=== PATIENT | male | born 1955 | race Hispanic/Latino ===

== ENCOUNTER → 2018-02-08 | Outpatient (CLI) | payer BC, OTHER | END | disposition home or self-care (01) | LOC: SHCH 08:12 | PROVIDERS: ATTEND Internal Medicine Cardiovascular Disease | DX: I34.0 Nonrheumatic mitral (valve) insufficiency (principal); I35.8 Other nonrheumatic aortic valve disorders; I25.10 Atherosclerotic heart disease of native coronary artery without angina pectoris | CPT/HCPCS: 93306 ==

== ENCOUNTER → 2018-02-14 | Outpatient (CLI) | payer BC, OTHER ==
[~2018-02-14] MED LIST: REGADENOSON 0.4 MG/5 ML PF SYG IVP SCH
== END | disposition home or self-care (01) ==
LOC: SHCH 08:14
PROVIDERS: ATTEND Internal Medicine Cardiovascular Disease
DX: I25.10 Atherosclerotic heart disease of native coronary artery without angina pectoris (principal)
CPT/HCPCS: 78452; 93017; 96374; A9500 ×2; J2785 ×2

== ENCOUNTER → 2018-02-15 | Outpatient (CLI) | payer BC, OTHER | END | disposition home or self-care (01) | LOC: SHCH 07:52 | PROVIDERS: ATTEND Internal Medicine Cardiovascular Disease | DX: R09.89 Other specified symptoms and signs involving the circulatory and respiratory systems (principal) | CPT/HCPCS: 93880 ==

== ENCOUNTER 2018-06-14 07:55 | Observation (INO) | payer BC, OTHER ==
[2018-06-10 13:17] VITALS: BP 140/93
[2018-06-10 13:24] LABS: APPEARANCE,URINE Clear (CLEAR); BASOPHILS % (AUTO) 0.5 % (0.0-5.0); BILIRUBIN,URINE Negative (NEGATIVE); COLOR,URINE Yellow (YELLOW); GLUCOSE, URINE (UA) Negative (NEGATIVE); HEMATOCRIT 48.1 % (42-54); KETONES,URINE Negative (NEGATIVE); LEUKOCYTE ESTERASE ,URINE Negative (NEGATIVE); LYMPHOCYTES % (AUTO) 27.6 % (21.0-51.0); MEAN CORPUSCULAR HEMOGLOBIN 31.6 pg (27.0-33.0); MEAN CORPUSCULAR HGB CONC 34.2 g/dL (32.0-36.0); MEAN CORPUSCULAR VOLUME 92.4 fL (79-99); MONOCYTES % (AUTO) 10.9 % (3.0-13.0); NITRATE,URINE Negative (NEGATIVE); NUCLEATED RED BLOOD CELLS 0.1 % (0.0-0.19); OCCULT BLOOD,URINE Negative (NEGATIVE); PLATELET COUNT (AUTO) 198 K/uL (130-400); PROTEIN,URINE Negative (NEGATIVE); RED BLOOD CELL COUNT(AUTO) 5.21 MIL/uL (4.50-6.20); RED CELL DISTRIBUTION WIDTH 13.8 % (11.0-15.5); WHITE BLOOD COUNT (AUTO) 9.2 K/uL (4.8-10.8)
[2018-06-10 13:32] LABS: POTASSIUM 4.2 mmol/L (3.5-5.1)
[2018-06-10 13:36] LABS: INR 1.08 (0.85-1.15); PARTIAL THROMBOPLASTIN TIME 31.1 SEC (26.3-35.5); PROTHROMBIN TIME 11.3 SEC (9.6-11.6)
[2018-06-14] VITALS (10 sets, daily range): BP systolic 116–146; BP diastolic 59–94
[~2018-06-14] VITALS: Ht 175.3 cm; Wt 100.5 kg
[~2018-06-14 07:55] MED LIST changes: +ASPI-1197 PO; +ATOR20TA65 PO; +BUPR-47 PO; +ERGO500014 PO; +FLUTICASONE PROP NASAL; +MONT10TA24 PO; -REGADENOSON 0.4 MG/5 ML PF SYG IVP SCH
[2018-06-14] MEDS ORDERED: SODIUM CHLORIDE 0.9% 1000ML 1,000 ML IV ONE (08:02)
[2018-06-14] MEDS ORDERED: IOHEXOL 350 MG/ML 100ML INFUS..BTL IV ONE (10:07)
[2018-06-14] MEDS ORDERED: SODIUM BICARB 50MEQ 50ML VIAL ONE (10:07)
[2018-06-14] MEDS ORDERED: IOHEXOL-350 50ML VIAL IV ONE (10:07)
[2018-06-14] MEDS ORDERED: HEPARIN SODIUM 1000UNIT/ML 10ML VIAL ONE (10:07)
[2018-06-14] MEDS ORDERED: NITROGLYCERIN 5 MG/ML 10 ML VIAL IV ONE (10:07)
[2018-06-14] MEDS ORDERED: LIDOCAINE HCL 2% 20ML ONE (10:26)
[2018-06-14] MEDS ORDERED: MEPERIDINE-PF 25 MG/ML SYG ONE (10:29)
[2018-06-14] MEDS ORDERED: MIDAZOLAM HCL 1 MG/ML 2ML VIAL ONE (10:29)
[2018-06-14] MEDS ORDERED: ASPIRIN 325MG EC TAB 325 MG TABLET.DR PO ONE (11:33)
[2018-06-14] MEDS ORDERED: TICAGRELOR 90 MG TABLET ONE (11:33)
[2018-06-14] MEDS ORDERED: ACETAMINOPHEN 325 MG TAB PO PRN (12:00)
[2018-06-14] MEDS ORDERED: MORPHINE SULFATE 5 MG/ML VIAL IVP SCH ×3 (12:00→18:15)
[2018-06-14] MEDS ORDERED: TEMAZEPAM 30 MG CAP PO PRN (12:00)
[2018-06-14] MEDS ORDERED: ERGOCALCIFEROL (VITAMIN D2) 50,000 UNIT CAPSULE PO SCH (12:00)
[2018-06-14] MEDS ORDERED: NITROGLYCERIN 50 MG/D5% WATER 1 BOT IV PRN (12:00)
[2018-06-14] MEDS ORDERED: ONDANSETRON HCL 4 MG/2 ML VIAL IVP PRN (12:00)
[2018-06-14] MEDS ORDERED: SODIUM CHLORIDE 0.9% 1000ML 1,000 ML IV SCH (12:00)
[2018-06-14] MEDS ORDERED: ONDANSETRON HCL 4 MG/2 ML VIAL IVP SCH (12:00)
--- NOTE | 2018-06-14 12:55 | NUR ---
DC PLAN PATIENT MOVED TO [facility] LAST NIGHT. WILL CONTINUE TO FOLLOW LIKELY LESS THAN 72 HRS. Addendum: 06/14/18 at 1256 by FRANCHESKA EDEN RN CM Amended: Links added.
[2018-06-14] MEDS ORDERED: DESL5TAB38 PO (14:27)
--- NOTE | 2018-06-14 18:31 | NUR ---
Right Femoral sheath pulled post ptt result under 55 as per protocol. Pressure was held for 30 minutes. No complications. Pressure dressing was placed. Will reassess at shift change.
[2018-06-14] MEDS: TICAGRELOR 90 MG TABLET PO SCH (20:52)
[2018-06-14] MEDS ORDERED: ASPIRIN 81MG TAB.CHEW PO SCH (21:00)
[2018-06-14] MEDS ORDERED: MONTELUKAST SODIUM 10 MG TAB PO SCH (21:00)
[2018-06-14] MEDS ORDERED: ATORVASTATIN CALCIUM 20 MG TABLET PO SCH (21:00)
[2018-06-15 03:50] LABS: HEMATOCRIT 43.5 % (42-54); MEAN CORPUSCULAR HGB CONC 34.9 g/dL (32.0-36.0); MEAN CORPUSCULAR VOLUME 91.6 fL (79-99); PLATELET COUNT (AUTO) 172 K/uL (130-400); RED BLOOD CELL COUNT(AUTO) 4.75 MIL/uL (4.50-6.20); RED CELL DISTRIBUTION WIDTH 13.5 % (11.0-15.5)
[2018-06-15 03:55] VITALS: BP 127/82
[2018-06-15 04:26] LABS: POTASSIUM 4.1 mmol/L (3.5-5.1)
[2018-06-15 07:47] VITALS: BP 116/84
[2018-06-15] MEDS ORDERED: ASPIRIN 81MG TAB.CHEW PO SCH (09:00)
[2018-06-15] MEDS ORDERED: PANTOPRAZOLE SODIUM 40 MG TABLET.DR PO SCH (09:00)
[2018-06-15] MEDS ORDERED: **HM** BUPROPION XL 150MG PO SCH (09:00)
[2018-06-15] MEDS: TICAGRELOR 90 MG TABLET PO SCH (09:15)
[2018-06-15 11:52] VITALS: BP 137/87
[2018-06-15] MEDS ORDERED: TICA90TA PO (12:30)
[2018-06-15] MEDS ORDERED: FLUTICASONE PROPIONATE 50MCG/SPRAY 16 GM BOTTLE EN SCH (21:00)
== END 2018-06-15 13:00 | disposition home or self-care (01) ==
LOC: DAH 07:55 → DAHIP 07:56 → DAH 07:56 → 2DH 12:47
PROVIDERS: ADMIT Internal Medicine; ATTEND Internal Medicine
DX: I25.119 Atherosclerotic heart disease of native coronary artery with unspecified angina pectoris (principal); E78.5 Hyperlipidemia, unspecified; F17.200 Nicotine dependence, unspecified, uncomplicated; I25.2 Old myocardial infarction; Z91.19 Patient's noncompliance with other medical treatment and regimen; Z79.899 Other long term (current) drug therapy; Z82.49 Family history of ischemic heart disease and other diseases of the circulatory system; Z88.5 Allergy status to narcotic agent; Z79.01 Long term (current) use of anticoagulants
CPT/HCPCS: 36415 ×3; 71045; 80048 ×2; 80061; 81003; 82948 ×2; 85025; 85027; 85610; 85730 ×3; 93005 ×2; 93458; 96374; A4606; C1769; C1874; C1887; C1894 ×2; C9600; G0378 ×29; J1644 ×2; J2175; J2250; J2270; J3490 ×3; J7030; Q9965 ×2; Q9967 ×2; 99156; 99157

== ENCOUNTER → 2021-10-14 | Outpatient (CLI) | payer BC, OTHER ==
[~2021-10-14] MED LIST changes: -BUPR-47 PO; +BUPR-49 PO; +DESL5TAB38 PO; +MONT-39 PO; -MONT10TA24 PO; +TICA90TA PO
== END | disposition home or self-care (01) ==
LOC: SHCH 10:10
PROVIDERS: ATTEND Internal Medicine Cardiovascular Disease
DX: I10 Essential (primary) hypertension (principal); I25.10 Atherosclerotic heart disease of native coronary artery without angina pectoris; E78.5 Hyperlipidemia, unspecified
CPT/HCPCS: 93306

== ENCOUNTER → 2021-10-29 | Outpatient (CLI) | payer BC, OTHER | END | disposition home or self-care (01) | LOC: SHCH 08:50 | PROVIDERS: ATTEND Internal Medicine Cardiovascular Disease | DX: I65.23 Occlusion and stenosis of bilateral carotid arteries (principal); I25.10 Atherosclerotic heart disease of native coronary artery without angina pectoris | CPT/HCPCS: 93880 ==

== ENCOUNTER 2022-12-21 08:55 | Day surgery (SDC) | payer MEDICARE ==
[2022-12-18 13:49] LABS: BASOPHILS # (AUTO) 0.05 K/uL (0.00-0.20); BASOPHILS % (AUTO) 0.4 % (0.0-5.0); EOSINOPHILS # (AUTO) 0.12 K/uL (0.00-0.70); HEMATOCRIT 47.4 % (42-54); IMMATURE GRANULOCYTE ABSOLUTE 0.06 K/uL (0-1); LYMPHOCYTES # (AUTO) 3.5 K/uL (1.0-4.8); LYMPHOCYTES % (AUTO) 29.1 % (21.0-51.0); MEAN CORPUSCULAR HEMOGLOBIN 31.1 pg (27.0-33.0); MEAN CORPUSCULAR VOLUME 91.5 fL (79-99); MONOCYTES # (AUTO) 1.1 K/uL (0.1-1.0); MONOCYTES % (AUTO) 9.5 % (3.0-13.0); NEUTROPHILS # (AUTO) 7.2 K/uL (1.8-7.7); NEUTROPHILS % (AUTO) 59.5 % (40.0-77.0); PLATELET COUNT (AUTO) 197 K/uL (130-400); RED BLOOD CELL COUNT(AUTO) 5.18 MIL/uL (4.50-6.20); RED CELL DISTRIBUTION WIDTH 12.9 % (11.0-15.5)
[2022-12-18 13:50] LABS: APPEARANCE,URINE CLEAR (CLEAR); BILIRUBIN,URINE NEGATIVE (NEGATIVE); COLOR,URINE YELLOW (YELLOW); GLUCOSE, URINE (UA) NEGATIVE (NEGATIVE); KETONES,URINE NEGATIVE (NEGATIVE); LEUKOCYTE ESTERASE ,URINE NEGATIVE Leu/uL (NEGATIVE); NITRATE,URINE NEGATIVE (NEGATIVE); OCCULT BLOOD,URINE NEGATIVE (NEGATIVE); PROTEIN,URINE 20 mg/dL (NEGATIVE); UROBILINOGEN,URINE 0.2 mg/dL (0.2-1.0)
[2022-12-18 13:51] VITALS: BP 132/86; PULSE 78; RESP 16
[2022-12-18 13:51] LABS: ADD UA MICROSCOPIC NO
[2022-12-18 13:56] LABS: CREATININE 1.1 mg/dL (0.5-1.5); POTASSIUM 4.3 mmol/L (3.5-5.1)
[2022-12-18 14:00] LABS: INR 1.01 (0.85-1.15); PROTHROMBIN TIME 11.7 SEC (9.6-11.6)
[2022-12-18 14:01] LABS: PARTIAL THROMBOPLASTIN TIME 29.3 SEC (26.3-35.5)
[2022-12-18 14:31] LABS: B-TYPE NATRIURETIC PEPTIDE < 5 pg/mL (0-100)
[~2022-12-21] VITALS: Ht 177.8 cm; Wt 92.5 kg
[2022-12-21] VITALS (9 sets, daily range): BP systolic 102–121; BP diastolic 66–75; PULSE 45–60; RESP 13–18
[~2022-12-21 08:55] MED LIST changes: -ATOR20TA65 PO; -BUPR-49 PO; -DESL5TAB38 PO; -ERGO500014 PO; -FLUTICASONE PROP NASAL; +LISI20TA24 PO; +METF-444 PO; -MONT-39 PO; +ROSU20TA73 PO; -TICA90TA PO
[2022-12-21] MEDS ORDERED: 0.9%NACL 1000ML 1,000 ML IV ONE (09:56)
[2022-12-21] MEDS ORDERED: LIDOCAINE HCL 400MG/20ML VIAL ONE (12:56)
[2022-12-21] MEDS ORDERED: SODIUM BICARB 50MEQ 50ML VIAL 50 ML ONE (12:56)
[2022-12-21] MEDS ORDERED: MIDAZOLAM HCL 1 MG/ML 2ML VIAL ONE ×2 (12:57→13:15)
[2022-12-21] MEDS ORDERED: MEPERIDINE-PF 25 MG/ML SYG ONE ×2 (12:57→13:15)
[2022-12-21] MEDS ORDERED: HEPARIN 10,000 UNIT/10ML (1,000 UNIT/ML) VIAL ONE (12:57)
[2022-12-21] MEDS ORDERED: IOHEXOL-350 50ML VIAL IV ONE ×2 (12:57→13:40)
[2022-12-21] MEDS ORDERED: IOHEXOL 350 MG/ML 100ML INFUS..BTL IV ONE (12:57)
[2022-12-21] MEDS ORDERED: NICARDIPINE 25MG INJ IV ONE (12:57)
[2022-12-21] MEDS ORDERED: CLOPIDOGREL 300MG TAB ONE (13:49)
[2022-12-21] MEDS ORDERED: GLUCAGON 1MG KIT 1 MG ML IM PRN (14:00)
[2022-12-21] MEDS ORDERED: 0.9%NACL 1000ML 1,000 ML IV SCH (14:00)
[2022-12-21] MEDS ORDERED: DEXTROSE 50%-WATER 50 ML DISP.SYRIN IV PRN (14:00)
[2022-12-21] MEDS ORDERED: INSULIN HUMULIN R 100 UNIT/ML 3ML SQ SCH (16:30)
== END 2022-12-21 20:10 | disposition home or self-care (01) ==
LOC: DAH 08:55
PROVIDERS: ATTEND Internal Medicine Cardiovascular Disease
DX: I25.10 Atherosclerotic heart disease of native coronary artery without angina pectoris (principal); Z88.6 Allergy status to analgesic agent; Z82.49 Family history of ischemic heart disease and other diseases of the circulatory system; Z82.5 Family history of asthma and other chronic lower respiratory diseases; Z83.3 Family history of diabetes mellitus; Z79.82 Long term (current) use of aspirin; Z79.84 Long term (current) use of oral hypoglycemic drugs; Z72.89 Other problems related to lifestyle; Z87.891 Personal history of nicotine dependence
CPT/HCPCS: 80048; 83880; 85025; 85610; 85730; 81003; 36415; 71045; 93005; 85347; 82948 ×2; 93454; 96360; 96361; C9600; C1769; C1887; C1894 ×2; C1874 ×2; C1760; J3490 ×2; J7030; J1644 ×2; J2250 ×2; J2175 ×2; Q9967 ×2; A4215; A4222; A4221; A4663; A4216; A4606; Q9965 ×2; A4223 ×3; 99156; 99157

== ENCOUNTER → 2023-08-06 | Outpatient (CLI) | payer MEDICARE | END | disposition home or self-care (01) | LOC: SHCH 09:07 | PROVIDERS: ATTEND Internal Medicine Cardiovascular Disease | DX: I25.10 Atherosclerotic heart disease of native coronary artery without angina pectoris (principal); R55 Syncope and collapse | CPT/HCPCS: 93880 ==

== ENCOUNTER → 2023-10-02 | Outpatient (CLI) | payer MEDICARE | END | disposition home or self-care (01) | LOC: SHCH 11:14 | PROVIDERS: ATTEND Internal Medicine Cardiovascular Disease | DX: I73.9 Peripheral vascular disease, unspecified (principal) | CPT/HCPCS: 93925 ==

== ENCOUNTER → 2024-03-14 | Outpatient (CLI) | payer MEDICARE ==
[~2024-03-14] MED LIST changes: -ROSU20TA73 PO; +ROSU20TA98 PO
[2024-03-14] MEDS: REGADENOSON 0.4 MG/5 ML PF SYG IVP ONE (14:13)
--- NOTE | 2024-03-16 07:51 | HMCSR ---
APPROVED REPORT Height: 5 ft 9in Weight: 193 lbs TEST INDICATIONS Chest Pain The imaging protocol used to acquire images was Rest Tc-99m/stress Tc-99m 1 day Consent: The procedure was explained and understood by the patient. Informerd consent was witnessed Selam Mccormick RN First, low dose rest was performed then high dose stress. RESTING DATA: The resting ekg shows: NSR Rest SPECT myocardial perfusion imaging was performed in supine position 68 minutes following the int ravenous injection of 10 mCi of Tc-99 Sestamibi. Time of rest injection: 08:25: Date: 03/14/2024 Time of rest imagin:33: Date: 03/14/2024 PHARMACOLOGIC STRESS: Pharmacologic stress test was performed by injecting regadenoson 0.4 mg IV push followed by the intra venous injection of 31.7 mCi of Tc-99 Sestamibi. Time of stress injection: 09:58: Date: 03/14/2024 Time of stress imagin:18: Date: 03/14/2024 Heart Rate at time of stress injection: 56 bpm. Gated Stress SPECT was performed 80 minutes after stress injection. The images were gated to evaluate regional wall motion and calculate left ventricular ejection fracti on. STRESS DETAILS Reason for Termination: Infusion complete Stress Symptoms: Dyspnea Max HR Achieved: 81 bpm % of APMHR Achieved: 53 Max Blood Pressure: 122/82 mmHg Stress ECG: NSR LEFT VENTRICLE Size: The left ventricular size is normal. Systolic Function:The left ventricular systolic function is normal. Wall Motion: No regional wall motion abnormalities noted. The left ventricular ejection fraction was calculated to be 59%.TID = . LV PERFUSION Fixed infero-apical thinning. No reversible defects. Conclusion The left ventricular size is normal. The left ventricular systolic function is normal. No regional wall motion abnormalities noted. Fixed infero-apical thinning. No reversible defects. The left ventricular ejection fraction was calculated to be 59%.
== END | disposition home or self-care (01) ==
LOC: SHCH 08:08
PROVIDERS: ATTEND Internal Medicine Cardiovascular Disease
DX: R06.00 Dyspnea, unspecified (principal); R07.9 Chest pain, unspecified
CPT/HCPCS: 78452; 93017; J2785; A9500 ×2

== ENCOUNTER 2024-08-31 10:34 | Emergency (ER) | payer MEDICARE, OTHER ==
[~2024-08-31] VITALS: Ht 180.3 cm; Wt 88.5 kg
--- NOTE | 2024-08-31 10:45 | ERN ---
General Chief Complaint: Abdominal Pain Stated Complaint: ABDOMINAL PAIN Time Seen by MD: 10:37 Source: patient History of Present Illness Initial Comments Patient is a 68-year-old male coming in to be evaluated for generalized abdominal pain. Patient states he has a extensive history of repeated bouts of abdominal pain. He was diagnosed with H pylori in February went through the course of antibiotics but states that his pain never completely subsided. Long with this patient states he has a extensive history of cardiac issues with a multiple stent placement in the past. In his occasion the abdominal pain started last night he states it was so intense he could not tolerated and decided to come in for further evaluation. Allergies: Coded Allergies: codeine (Unverified Allergy, Intermediate, RASH, HIVES, 12/30/15) Home Meds Reported Medications Metformin HCl (Metformin HCl) 500 Mg Tablet, 500 MG PO BID, TAB 12/18/22 Rosuvastatin Calcium (Rosuvastatin Calcium) 20 Mg Tablet, 20 MG PO HS, TAB 12/18/22 Lisinopril (Lisinopril) 20 Mg Tablet, 10 MG PO BID, TAB 12/18/22 Aspirin (Aspirin) 81 Mg Tab.chew, 325 MG PO HS, TAB.CHEW 06/10/18 Past Medical History Past Medical History: Asthma, CAD, Cancer, COPD, Diabetes-Type II, High Cholesterol, Hypertension, PA Medical History Other: CARDIAC STENTS, H PYLORI, SKIN CANCER, BACK AND SHOULDER COMPLICATIONS Past Surgical History: Other Surgical History Other: NECK SX ROS Dictation CONSTITUTIONAL: No chills, no fever, no weakness, no diaphoresis, no malaise. HEAD/FACE: No signs of trauma. EENT: No eye pain, no blurred vision, no tearing, no double vision, no ear pain, no ear discharge, no nose pain, no nasal congestion, no throat pain, no throat swelling, no mouth pain. RESPIRATORY: No cough, no orthopnea, no SOB, no stridor, no wheezing. CARDIOVASCULAR: No chest pain, no edema, no palpitations, no syncope. GASTROINTESTINAL/ABDOMINAL: abdominal pain, no constipation, no diarrhea, no nausea, no vomiting. GENITOURINARY: No abnormal discharge, no dysuria, no frequent urination, no h ematuria. No complaints of pain in the genitals. MUSCULOSKELETAL: No back pain, no gout, no joint pain, no joint swelling, no muscle pain, no muscle stiffness, no neck pain. INTEGUMENTARY: No change in color, no change in hair/nails, no dryness, no les ion, no lumps, no rash. NEUROLOGICAL/PSYCH: No anxiety, not depressed, no emotional problem, no headache, no numbness, no pre-existing deficit, no history of seizures, no tremors, no weakness. HEMATOLOGIC/LYMPHATIC: Not anemic, no history of blood clots, no apparent bleeding, no bruising, glands not swollen. All Systems Negative, Except as Noted. Physical Exam Physical Exam Dictation VITAL SIGNS: Reviewed. GENERAL APPEARANCE: Alert, oriented x3, no acute distress, obese. HEAD AND FACE: Non-traumatic. EYES: PERRL, pink conjunctivas, eyelid no trauma, anterior chamber clear. EARS: Pinnas intact and no signs of trauma or erythema. Ear canals clear and no discharge. TMs no erythema. NOSE: No discharge, no bleeding. OROPHARYNX: Mouth normal, teeth no caries, tongue pink. Pharynx clear, no erythema. Tonsils no exudates, no abscesses noted. Mucous membrane moist. NECK: Supple, non-tender, no thyromegaly, no masses, no JVD, no bruits. BREAST: Deferred. CHEST: No tenderness, no crepitus, no paradoxical movement, no retractions. LUNGS: Clear, well-ventilated, symmetric, no rales, no wheezing, no rhonchi, no stridor, good breath sounds bilaterally. HEART: Regular rate, regular rhythm, no murmur, no gallops. VASCULAR: No peripheral edema. ABDOMEN: Soft, positive bowel sounds, nondistended, no guarding, generalized abdominal tender, no rebound, no masses no hepatomegaly, no splenomegaly, no Briones's sign, no hernias. RECTAL: Deferred. GENITAL: Deferred. NEUROLOGICAL: Normal speech, gross motor function intact, gross sensory function intact. MUSCULOSKELETAL: Neck nontender, full range of motion, back nontender, full range of motion. EXTREMITIES: Nontender, full range of motion. SKIN: Color pink, dry, no turgor, no rash, no lacerations, no abrasions, no contusions. LYMPHATICS: Deferred. Results Laboratory and Microbiology Lab and Micro Result Laboratory Tests Test 08/31/24 10:47 08/31/24 10:51 White Blood Count 11.2 K/uL (4.8-10.8) H Red Blood Count 5.14 MIL/uL (4.50-6.20) Hemoglobin 16.4 g/dL (14.0-18.0) Hematocrit 46.2 % (42-54) Mean Corpuscular Volume 89.9 fL (79-99) Mean Corpuscular Hemoglobin 31.9 pg (27.0-33.0) Mean Corpuscular Hemoglobin Concent 35.5 g/dL (32.0-36.0) Red Cell Distribution Width 12.9 % (11.0-15.5) Platelet Count 209 K/uL (130-400) Mean Platelet Volume 10.6 fL (7.5-10.5) H Immature Granulocyte % (Auto) 0.3 % (0-1) Neutrophils (%) (Auto) 72.6 % (40.0-77.0) Lymphocytes (%) (Auto) 18.8 % (21.0-51.0) L Monocytes (%) (Auto) 7.0 % (3.0-13.0) Eosinophils (%) (Auto) 0.9 % (0.0-8.0) Basophils (%) (Auto) 0.4 % (0.0-5.0) Neutrophils # (Auto) 8.1 K/uL (1.8-7.7) H Lymphocytes # (Auto) 2.1 K/uL (1.0-4.8) Monocytes # (Auto) 0.8 K/uL (0.1-1.0) Eosinophils # (Auto) 0.10 K/uL (0.00-0.70) Basophils # (Auto) 0.04 K/uL (0.00-0.20) Absolute Immature Granulocyte (auto 0.03 K/uL (0-1) Nucleated Red Blood Cells 0.0 % (0.0-0.19) Sodium Level 140 mmol/L (136-145) Potassium Level 4.4 mmol/L (3.5-5.1) Chloride Level 105 mmol/L (101-111) Carbon Dioxide Level 29 mmol/L (21-32) Blood Urea Nitrogen 20 mg/dL (7-18) H Creatinine 0.8 mg/dL (0.5-1.3) Glomerular Filtration Rate Calc 98 mL/min (>90) Random Glucose 144 mg/dL (70-105) H Total Calcium 9.1 mg/dL (8.5-10.1) Total Bilirubin 0.7 mg/dL (0.2-1.0) Aspartate Amino Transf (AST/SGOT) 18 U/L (10-37) Alanine Aminotransferase (ALT/SGPT) 33 U/L (12-78) Alkaline Phosphatase 56 U/L (50-136) Total Creatine Kinase 139 U/L (21-232) Troponin I High Sensitivity 7 ng/L (4-75) Total Protein 7.2 g/dL (6.0-8.3) Albumin 3.8 g/dL (3.5-5.0) Lipase 26 U/L (16-77) Urine Color YELLOW (YELLOW) Urine Appearance CLEAR (CLEAR) Urine pH 5.5 (5.0-8.0) Urine Specific [place] 1.032 (1.001-1.031) Urine Protein 20 mg/dL (NEGATIVE) H Urine Glucose (UA) 70 mg/dL (NEGATIVE) H Urine Ketones NEGATIVE mg/dL (NEGATIVE) Urine Occult Blood +- (TRACE) (NEGATIVE) H Urine Nitrate NEGATIVE (NEGATIVE) Urine Bilirubin NEGATIVE mg/dL (NEGATIVE) Urine Urobilinogen 0.2 mg/dL (0.2-1.0) Urine Leukocyte Esterase NEGATIVE Michel/uL Urine RBC 2-5 /HPF (0-1) H Urine WBC 0-1 /HPF (0-1) Urine Squamous Epithelial Cells RARE /HPF (0-2) Urine Bacteria None /HPF (None Seen) Labs Reviewed?: Yes EKG/XRAY/US/CT/MRI EKG Comment 08/31/2024 time 10:45 a.m. Ventricular rate [address] wave elevation or depression X-RAY Comment IMAGING REPORT Signed PATIENT: TIAGO YO MR#: [id number] : 1955 SEX: M AGE: 68 LOCATION: [facility] ORDER [id number] STATUS: [facility] REPORT#: [id number] SERVICE 1042 REASON: cp ORDERING PHYSICIAN: ACOSTA JOE MD PROCEDURE: CXR1VW - CHEST 1VW CHEST 1VW HISTORY: Chest pain COMPARISON: 12/18/2022 FINDINGS: A frontal projection of the chest was obtained. No acute pulmonary infiltrates is seen. The heart is normal in size. Postop changes are seen of cervical spine. No evidence of aortic calcification is seen. IMPRESSION: 1. No acute pulmonary infiltrate is seen. DICTATED BY: DAINA COOLEY MD DATE: 08/31/24 1207 ELECTRONICALLY SIGNED BY: DAINA COOLEY MD DATE: 08/31/[address] Scan Comment [address] [place] [id number] IMAGING REPORT Signed PATIENT: TIAGO YO MR#: [id number] : 1955 SEX: M AGE: 68 LOCATION: [facility] ORDER [id number] STATUS: [facility] REPORT#: [id number] SERVICE 1042 REASON: ABD PAIN ORDERING PHYSICIAN: ACOSTA JOE MD PROCEDURE: ABD PEL WO - CT ABDOMEN/PELVIS W/O CONTRAST CT ABDOMEN/PELVIS W/O CONTRAST HISTORY: Abdominal pain COMPARISON: None TECHNIQUE: Multiple sequential axial images of the abdomen and pelvis were obtained from the dome of the diaphragm through symphysis pubis. Patient was not given contrast through intravenous route. Oral contrast was not given. FINDINGS: No pleural effusion is seen bilaterally. There is no evidence of parenchymal disease or pulmonary nodule of the visualized lower lungs. Degenerative changes of the thoracolumbar spine are present. The heart is not enlarged. The liver, spleen, adrenal glands and pancreas are unremarkable. There is no evidence of hydronephrosis bilaterally. No evidence of renal stone is seen. No CT evidence of acute appendicitis is seen. Fecal material is seen in the colon. There are normal size retroperitoneal and mesenteric lymph nodes. No ascites is seen. No CT evidence of acute appendicitis is seen. Pelvic sidewalls are symmetric bilaterally. Bladder is poorly distended. IMPRESSION: 1. Diverticulosis. No ascites. CT was performed with one or more following dose reduction techniques: automated exposure control, adjustment of the mA and kv according to patient's size, or use of a iterative reconstruction technique. DICTATED BY: DAINA COOLEY MD DATE: 08/31/24 1150 ELECTRONICALLY SIGNED BY: DAINA COOLEY MD DATE: 08/31/24 1154 [facility] MDM: Differential diagnosis: Abdominal pain, history of H pylori, history of CAD, GASTRITIS Rationale: Tests considered and ordered secondary to shared decision making include: Previous outside records reviewed: Old ER visits. Risk of complication and/or morbidity or mortality of patient management: None Medications-Per medication reconciliation Need for hospitalization: Patient does not meet criteria for hospitalization. Need for emergency major/minor surgery: No PATIENT IS A 68-YEAR-OLD MALE COMING IN WITH THE ABDOMINAL PAIN. BECAUSE THE PA IN WAS EXTENSIVE AND PATIENT STATES THAT HE HAS BEEN HAVING OFF FOR SOME TIME A CT HEAD TO BE ORDER. CT DID NOT DISCLOSE ACUTE FINDINGS. PATIENT WILL BE DISCHARGED IN STABLE CONDITION WITH A DIAGNOSIS OF CHRONIC GASTRITIS. I DID ADVISED HIM APPROPRIATE FOLLOW UP WITH A SAND FILLER FOR ONGOING MANAGEMENT OF H PYLORI. NO FEVER OR CHILLS. PATIENT WILL BE DISCHARGED IN STAB LE CONDITION. ED Course Orders Procedure Category Date Status Time Cbc With Differential LAB 08/31/24 Complete 10:42 Comprehensive LAB 08/31/24 Complete Metabolic Panel 10:42 Troponin I High LAB 08/31/24 Complete Sensitivity 10:42 Urinalysis Profile LAB 08/31/24 Complete 10:42 12 Lead Ekg Tracing- EKG 08/31/24 Logged Technical 10:42 Lactated Ringers PHA 08/31/24 Complete 1000ml (Lactated 11:00 Ondansetron 4mg Inj PHA 08/31/24 Complete (Zofran 4mg Inj) 11:00 Lidocaine Hcl 2% PHA 08/31/24 Complete Viscous (Lidocaine Hcl 11:00 Mag/Alum/Simeth 30ml PHA 08/31/24 Complete (Maalox Plus 30ml) 11:00 Pantoprazole 40mg Inj PHA 08/31/24 Complete (Protonix 40mg Inj 11:00 Creatine Kinase, Total LAB 08/31/24 Complete 10:42 Ct Abdomen/Pelvis W/O CT 08/31/24 Resulted Contrast 10:42 Chest 1vw RAD 08/31/24 Resulted 10:42 Lipase LAB 08/31/24 Complete 10:42 Current Medications Medications (Trade) Dose Ordered Sig/Edwar Route PRN Reason Start Time Stop Time Status Last Admin Dose Admin Al Hydroxide/Mg Hydroxide (MAALox PLUS 30ML) 30 ml ONCE ONCE PO 08/31/24 11:00 08/31/24 11:01 DC 08/31/24 11:13 Lactated Ringer's 1,000 ml @ 0 mls/hr ONCE ONCE IV 08/31/24 11:00 08/31/24 11:01 DC 08/31/24 11:13 Lidocaine HCl (Lidocaine HCl 2% Viscous) 10 ml ONCE ONCE PO 08/31/24 11:00 08/31/24 11:01 DC 08/31/24 11:12 Ondansetron HCl (zoFRAN 4MG INJ) 4 mg ONCE ONCE IVP 08/31/24 11:00 08/31/24 11:01 DC 08/31/24 11:12 Pantoprazole Sodium (PROTonix 40MG INJ) 40 mg ONCE ONCE IVP 08/31/24 11:00 08/31/24 11:01 DC 08/31/24 11:12 Vital Signs Date Time Temp Pulse Resp B/P (MAP) Pulse Ox O2 Delivery O2 Flow Rate FiO2 08/31/24 10:58 98.8 68 14 155/89 Room Air* 0 21 08/31/24 10:35 98.4 67 18 157/97 97 Room Air 0 DX & DISP Disposition: Discharge Departure Impression: Primary Impression: Chronic gastritis Condition: Stable Scripts Pantoprazole Sodium (Protonix) 40 Mg Ectab 1 TAB PO DAILY for 30 Days, #30 TAB 0 Refills Prov: ACOSTA JOE MD 08/31/24 Additional Instructions: FOLLOW-UP WITH PRIMARY CARE PROVIDER IN 1 TO 2 DAYS. TAKE MEDICATIONS DIRECTED HERE IN THE EMERGENCY ROOM. OKAY TO CONTINUE HOME MEDICATIONS UNLESS OTHERWISE DISCUSSED DURING YOUR VISIT IN THE EMERGENCY ROOM TODAY. RETURN TO YOUR NEAREST EMERGENCY ROOM IF SYMPTOMS WORSEN OR IF THERE IS NO IMPROVEMENT. CALL 911 IF YOU NEED IMMEDIATE ASSISTANCE. TAKE TYLENOL [id number] NEEDED AND IF NO CONTRAINDICATIONS ARE PRESENT. INCREASE ORAL HYDRATION. A WOUND CULTURE OR URINE CULTURE WAS ORDERED HERE IN THE EMERGENCY ROOM DEPARTMENT PLEASE FOLLOW-UP WITH PRIMARY CARE PROVIDER AND ADVISE THEM TO GET REPORTS FROM OUR FACILITY. IF YOU HAD ANY NAE WRAP/SPLINTS THAT WERE APPLIED HERE, PLEASE DO NOT REMOVE THEM UNTIL YOU SEE YOUR PRIMARY CARE OR SPECIALTY. REFERRALS: Referrals: CELE AKERS MD (PCP) SOTO SAUCEDO MD Time of Disposition: 12: ACOSTA JOE MD Aug 31, 2024 10:45
[2024-08-31 10:54] LABS: BASOPHILS # (AUTO) 0.04 K/uL (0.00-0.20); BASOPHILS % (AUTO) 0.4 % (0.0-5.0); EOSINOPHILS % (AUTO) 0.9 % (0.0-8.0); HEMATOCRIT 46.2 % (42-54); IMMATURE GRANULOCYTE ABSOLUTE 0.03 K/uL (0-1); LYMPHOCYTES # (AUTO) 2.1 K/uL (1.0-4.8); LYMPHOCYTES % (AUTO) 18.8 % (21.0-51.0); MEAN CORPUSCULAR HEMOGLOBIN 31.9 pg (27.0-33.0); MEAN CORPUSCULAR HGB CONC 35.5 g/dL (32.0-36.0); MEAN CORPUSCULAR VOLUME 89.9 fL (79-99); MONOCYTES # (AUTO) 0.8 K/uL (0.1-1.0); NEUTROPHILS # (AUTO) 8.1 K/uL (1.8-7.7); NEUTROPHILS % (AUTO) 72.6 % (40.0-77.0); PLATELET COUNT (AUTO) 209 K/uL (130-400); RED BLOOD CELL COUNT(AUTO) 5.14 MIL/uL (4.50-6.20); RED CELL DISTRIBUTION WIDTH 12.9 % (11.0-15.5); WHITE BLOOD COUNT (AUTO) 11.2 K/uL (4.8-10.8)
[2024-08-31 10:58] VITALS: BP 155/89; PULSE 68; RESP 14; TEMP 98.7
[2024-08-31 11:03] LABS: APPEARANCE,URINE CLEAR (CLEAR); BILIRUBIN,URINE NEGATIVE (NEGATIVE); COLOR,URINE YELLOW (YELLOW); GLUCOSE, URINE (UA) 70 mg/dL (NEGATIVE); KETONES,URINE NEGATIVE (NEGATIVE); LEUKOCYTE ESTERASE ,URINE NEGATIVE Leu/uL (NEGATIVE); NITRATE,URINE NEGATIVE (NEGATIVE); PH,URINE 5.5 (5.0-8.0); PROTEIN,URINE 20 mg/dL (NEGATIVE); UROBILINOGEN,URINE 0.2 mg/dL (0.2-1.0)
[2024-08-31 11:08] LABS: ALBUMIN 3.8 g/dL (3.5-5.0); BILIRUBIN,TOTAL 0.7 mg/dL (0.2-1.0); CREATININE 0.8 mg/dL (0.5-1.3); POTASSIUM 4.4 mmol/L (3.5-5.1); TOTAL PROTEIN, SERUM 7.2 g/dL (6.0-8.3)
[2024-08-31 11:11] LABS: ADD UA MICROSCOPIC YES
[2024-08-31] MEDS: LIDOCAINE HCL 2% VISCOUS 15 ML UDCUP PO ONE (11:12)
[2024-08-31] MEDS: ondanSETRON 4MG INJ IVP ONE (11:12)
[2024-08-31] MEDS: PANTOPrazole 40 MG/VIAL IVP ONE (11:12)
[2024-08-31] MEDS: LACTATED RINGERS 1000ML 1,000 ML IV ONE (11:13)
[2024-08-31] MEDS: MAG/ALUM/SIMETH 30 ML UDCUP PO ONE (11:13)
[2024-08-31 11:14] LABS: MUCUS,URINE RARE LPF (None Seen); SQUAMOUS EPITHELIAL CELL,UR RARE /HPF (0-2); WBC,URINE 0-1 /HPF (0-1)
--- NOTE | 2024-08-31 11:54 | HMCIMG ---
CT ABDOMEN/PELVIS W/O CONTRAST HISTORY: Abdominal pain COMPARISON: None TECHNIQUE: Multiple sequential axial images of the abdomen and pelvis were obtained from the dome of the diaphragm through symphysis pubis. Patient was not given contrast through intravenous route. Oral contrast was not given. FINDINGS: No pleural effusion is seen bilaterally. There is no evidence of parenchymal disease or pulmonary nodule of the visualized lower lungs. Degenerative changes of the thoracolumbar spine are present. The heart is not enlarged. The liver, spleen, adrenal glands and pancreas are unremarkable. There is no evidence of hydronephrosis bilaterally. No evidence of renal stone is seen. No CT evidence of acute appendicitis is seen. Fecal material is seen in the colon. There are normal size retroperitoneal and mesenteric lymph nodes. No ascites is seen. No CT evidence of acute appendicitis is seen. Pelvic sidewalls are symmetric bilaterally. Bladder is poorly distended. IMPRESSION: 1. Diverticulosis. No ascites. CT was performed with one or more following dose reduction techniques: automated exposure control, adjustment of the mA and kv according to patient's size, or use of a iterative reconstruction technique.
--- NOTE | 2024-08-31 12:10 | HMCIMG ---
CHEST 1VW HISTORY: Chest pain COMPARISON: 12/18/2022 FINDINGS: A frontal projection of the chest was obtained. No acute pulmonary infiltrates is seen. The heart is normal in size. Postop changes are seen of cervical spine. No evidence of aortic calcification is seen. IMPRESSION: 1. No acute pulmonary infiltrate is seen.
[2024-08-31] MEDS ORDERED: PANT40TA55 PO (12:26)
--- NOTE | 2024-08-31 12:34 | EKG ---
[facility] Test Date: 2024-08-31 Test Time: 10:45:41 Pat Name: TIAGO YO Department: ED Room: Gender: M Trial Judge: [id number] : 1955 Requested By: ACOSTA JOE Order Number: [id number] Reading MD: William Monique Measurements Intervals [place] Rate: 62 P: 18 PA: 187 QRS: 8 QRSD: 95 T: 23 QT: 410 QTc: 416 Interpretive Statements Sinus rhythm Compared to ECG 12/18/2022 13:14:11 Myocardial infarct finding no longer present Electronically Signed On 09-01-2024 15:03:55 CDT by William Monique Please click the below link to view image of tracing.
== END 2024-08-31 13:15 | disposition home or self-care (01) ==
LOC: EDH 10:34
DX: K29.50 Unspecified chronic gastritis without bleeding (principal); E11.9 Type 2 diabetes mellitus without complications; E78.00 Pure hypercholesterolemia, unspecified; I10 Essential (primary) hypertension; I25.10 Atherosclerotic heart disease of native coronary artery without angina pectoris; Z79.82 Long term (current) use of aspirin; Z79.84 Long term (current) use of oral hypoglycemic drugs; Z79.899 Other long term (current) drug therapy; Z85.828 Personal history of other malignant neoplasm of skin; Z88.5 Allergy status to narcotic agent; Z95.5 Presence of coronary angioplasty implant and graft
CPT/HCPCS: 99285; 74176; 96374; 96361; 71045; 96375; 82550; 84484; 80053; 83690; 85025; 81001; 36415; 93005; J7120; J2405; J2470